=== PATIENT | male | born 1935 | race Caucasian/White ===

== ENCOUNTER → 2016-06-17 | Outpatient (CLI) | payer MEDICARE, BC ==
--- NOTE | 2016-06-17 11:51 | MR ---
EXAMINATION TYPE: MR brain wo/w con DATE OF EXAM: 06/17/2016 11:39 AM COMPARISON: MRI brain March 29, 2016. 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 TECHNIQUE: Multiplanar, multisequence images of the brain and brainstem is performed without and with IV contras t, utilizing 16 mL intravenous MultiHance . FINDINGS: Diffusion weighted images demonstrate no evidence of a recent infarct or other diffusion ab normality. There is no worrisome extra-axial fluid collection. There is persistent ventricular and mcfarlane lcal prominence consistent with diffuse cerebral atrophy. No midline shift is evident. Some focal and confluent low-attenuation in the periventricular white matter is again seen. Nonspecific finding. There is redemonstration of 3 rim enhancing lesions consistent with metastatic foci. Left temporal le yanique measures 2.2 x 2.1cm on axial image 36 stable in size from prior exam where it measured 2.2 x 2 .0 cm cm on axial image 11. Right parietal lesion measures 1.7 x 1.6 7 cm on current study axial rip ge 61 versus 1.7 x 1.7 cm on prior study image 21. Right frontal lesion measures 1.2 x 1.2 cm on axia l image 63 versus 1.1 x 1.0 cm on prior study image 23. Surrounding vasogenic edema is redemonstrated felt stable at all sites. No new rim-enhancing lesions are identified. Midline structures demonstrate normal morphology. The craniocervical junction appears within normal l imits. Post contrast images demonstrate no new areas of abnormal enhancement. The dural venous sinuse s appear patent. The visualized sinuses are clear and the globes are intact. IMPRESSION: Overall stable findings, 3 metastatic lesions are stable in size and appearance. No new l esions are evident.
== END | disposition home or self-care (01) ==
LOC: RADMRIMAIN 09:40
PROVIDERS: ATTEND Radiology Radiation Oncology
DX: C79.31 Secondary malignant neoplasm of brain (principal)
CPT/HCPCS: 70553; A9577

== ENCOUNTER → 2016-06-17 | Outpatient (CLI) | payer MEDICARE, BC ==
[2016-06-17 09:49] LABS: Basophils # (A) 0.1 k/uL (0-0.2); Basophils % (A) 1 %; CH 33.3; CHCM 34.2; Eosinophils % (A) 0 %; HCT 39.3 % (39.0-53.0); HDW 2.93; Luc # (Auto) 0.07; Luc % (Auto) 1; Lymphocytes # (A) 1.5 k/uL (1.0-4.8); Lymphocytes % (A) 22 %; MCH 32.4 pg (25.0-35.0); MCHC 33.1 g/dL (31.0-37.0); MCV 97.6 fL (80.0-100.0); Mean Platelet Volume 7.4; Monocytes # (A) 0.4 k/uL (0-1.0); Monocytes % (A) 6 %; Neutrophils # (A) 4.8 k/uL (1.3-7.7); Neutrophils % (A) 70 %; RBC 4.02 m/uL (4.30-5.90); RDW 15.7 % (11.5-15.5); WBC 6.8 k/uL (3.8-10.6); WBC (Perox) 7.06
[2016-06-17 10:02] LABS: Anion Gap 10 mmol/L; Blood Urea Nitrogen 34 mg/dL (9-20); Calcium 9.4 mg/dL (8.4-10.2); Carbon Dioxide 28 mmol/L (22-30); Chloride 104 mmol/L (98-107); Glucose 111 mg/dL (74-99); Magnesium 2.2 mg/dL (1.6-2.3); Non-African American GFR(MDRD) >60 (>60 ml/min/1.73 sqM); Phosphorous 3.2 mg/dL (2.5-4.5); Potassium 3.7 mmol/L (3.5-5.1); Sodium 142 mmol/L (137-145)
[2016-06-17 10:44] LABS: Iron 81 ug/dL (49-181)
[2016-06-17 10:54] LABS: % Iron Saturation 30.2 % (20-50); Total Iron Binding Capacity 268 ug/dL (261-462)
[2016-06-17 11:43] LABS: Appearance,Urine Clear (Clear); Bilirubin,Urine Negative (Negative); Glucose,Urine (UA) Trace (Negative); Ketones,Urine Negative (Negative); Leukocyte Esterase,Urine Negative (Negative); Nitrite,Urine Negative (Negative); PH, Urine 5.5 (5.0-8.0); Protein,Urine Trace (Negative); UA Billing (MACRO vs. MICRO) CHEM; Urobilinogen,Urine <2.0 mg/dL (<2.0)
== END | disposition home or self-care (01) ==
LOC: LABWHC1 09:13
PROVIDERS: ATTEND Nurse Practitioner Family
DX: N18.2 Chronic kidney disease, stage 2 (mild) (principal); D64.9 Anemia, unspecified; E55.9 Vitamin D deficiency, unspecified; E21.3 Hyperparathyroidism, unspecified; M10.9 Gout, unspecified; R80.9 Proteinuria, unspecified
CPT/HCPCS: 36415; 80048; 81003; 82306; 82728; 83540; 83550; 83735; 83970; 84100; 84550; 85025